=== PATIENT | male | born 1975 | race Caucasian/White ===

== ENCOUNTER 2022-06-27 09:04 | Inpatient (IN) | payer OTHER ==
[2022-06-27] MEDS ORDERED: LACTATED RINGERS SOLUTION 1,000 ML/1,000 ML INFUS.BAG IV STA (09:24)
[2022-06-27 10:31] LABS: BASO % 1.3 % (0-2.0); EOS % 6.9 % (0-4.5); HEMATOCRIT 38.4 % (35.4-49); HEMOGLOBIN 13.8 GM/dL (11.7-16.9); LYMPH % 19.7 % (8-40); MEAN CELL VOLUME 83.4 fl (80-96); MEAN PLT VOLUME 8.3 fl (7.5-11.1); MONO % 8.9 % (3.8-10.2); NEUT % 63.2 % (42.8-82.8); PLATELET COUNT 262 10^3/uL (134-434); RBC 4.61 M/mm3 (4.00-5.60); RDW 13.1 % (11.9-15.9)
[2022-06-27 10:35] LABS: INR 1.1 (0.83-1.09); PROTHROMBIN TIME (PATIENT) 12.8 SEC (9.7-13.0)
[2022-06-27 10:44] LABS: POTASSIUM 3.9 mmol/L (3.5-5.1)
[2022-06-27 10:47] LABS: ALBUMIN 3.7 g/dl (3.4-5.0); BLOOD UREA NITROGEN 11.7 mg/dL (7-18); CALCIUM 8.9 mg/dL (8.5-10.1)
[2022-06-27 10:51] LABS: BILIRUBIN,TOTAL 0.7 mg/dL (0.2-1); CREATININE 0.8 mg/dL (0.55-1.3); TOT PROT 7.3 g/dl (6.4-8.2)
[2022-06-27] MEDS ORDERED: CEFTRIAXONE 1 GM/50 ML BAG ONE (17:37)
[2022-06-27] MEDS: CEFTRIAXONE 1 GM in DEXTROSE 5%-WATER - 50 ML IVPB SCH (17:47)
[2022-06-27] MEDS ORDERED: PANTOPRAZOLE SODIUM 40 MG/100 ML BAG IVPB ONE (21:04)
[2022-06-27] MEDS: PANTOPRAZOLE SODIUM 40 MG VIAL IVPUSH SCH (21:09)
[2022-06-28] MEDS ORDERED: metroNIDAZOLE 500 MG PREMIXED 250 MG/50 ML MG IVPB SCH (02:00)
[2022-06-28 07:51] VITALS: BMI 27.6
[2022-06-28 08:21] LABS: BASO % 1.4 % (0-2.0); EOS % 9.7 % (0-4.5); HEMATOCRIT 37.4 % (35.4-49); HEMOGLOBIN 13.4 GM/dL (11.7-16.9); LYMPH % 25.4 % (8-40); MCH 29.6 pg (25.7-33.7); MCHC 35.8 g/dl (32.0-35.9); MEAN CELL VOLUME 82.6 fl (80-96); MEAN PLT VOLUME 7.9 fl (7.5-11.1); MONO % 9.3 % (3.8-10.2); NEUT % 54.2 % (42.8-82.8); PLATELET COUNT 268 10^3/uL (134-434); RBC 4.53 M/mm3 (4.00-5.60); RDW 12.8 % (11.9-15.9); WHITE BLOOD COUNT 7.7 K/mm3 (4.0-10.0)
[2022-06-28 08:22] LABS: INR 1.1 (0.83-1.09); PROTHROMBIN TIME (PATIENT) 12.8 SEC (9.7-13.0)
[2022-06-28 08:31] LABS: CALCIUM 8.9 mg/dL (8.5-10.1); POTASSIUM 4.1 mmol/L (3.5-5.1)
[2022-06-28 08:32] LABS: BLOOD UREA NITROGEN 11.6 mg/dL (7-18); MAGNESIUM 2.2 mg/dL (1.8-2.4)
[2022-06-28 08:36] LABS: CREATININE 0.8 mg/dL (0.55-1.3)
[2022-06-28] MEDS: PANTOPRAZOLE SODIUM 40 MG VIAL IVPUSH SCH (09:56)
[2022-06-28] MEDS: CEFTRIAXONE 1 GM in DEXTROSE 5%-WATER - 50 ML IVPB SCH (09:56)
[2022-06-28] MEDS ORDERED: PEG 3350/NA SULF BICARB CL/KCL 4000 ML SOLN.RECON PO ONE (10:00)
[2022-06-28] MEDS ORDERED: BISACODYL 5 MG TABLET.DR (FP) PO ONE (20:00)
[2022-06-29] MEDS: CEFTRIAXONE 1 GM in DEXTROSE 5%-WATER - 50 ML IVPB SCH (11:00)
[2022-06-29] MEDS: PANTOPRAZOLE SODIUM 40 MG VIAL IVPUSH SCH (11:00)
[2022-06-29] MEDS: MESALAMINE 800 MG TABLET.DR PO SCH ×2 (15:23→22:47)
[2022-06-29] MEDS ORDERED: MELATONIN 5 MG TABLETS PO ONE (22:08)
[2022-06-29] MEDS: MESALAMINE 4 GM/60 ML ENEMA RC SCH (22:47)
[2022-06-30] MEDS: MESALAMINE 800 MG TABLET.DR PO SCH ×3 (05:49→22:44)
[2022-06-30] MEDS: PANTOPRAZOLE SODIUM 40 MG VIAL IVPUSH SCH (09:21)
[2022-06-30] MEDS: CEFTRIAXONE 1 GM in DEXTROSE 5%-WATER - 50 ML IVPB SCH (12:19)
[2022-06-30] MEDS: MESALAMINE 4 GM/60 ML ENEMA RC SCH (22:44)
[2022-06-30] MEDS: MELATONIN 5 MG TABLETS PO PRN (22:44)
[2022-07-01 02:06] LABS: STOOL CHLORIDE 31 mmol/L (.); STOOL POTASSIUM 18 mmol/L (.); STOOL SODIUM 100 mmol/L (.)
[2022-07-01 02:06] LABS: STOOL CHLORIDE 55 mmol/L (.); STOOL POTASSIUM 31 mmol/L (.); STOOL SODIUM 109 mmol/L (.)
[2022-07-01] MEDS ORDERED: ACETAMINOPHEN 1000 MG/100 ML BAG IVPB ONE (04:58)
[2022-07-01] MEDS: MESALAMINE 800 MG TABLET.DR PO SCH ×3 (05:12→21:11)
[2022-07-01 09:15] LABS: POTASSIUM 3.9 mmol/L (3.5-5.1)
[2022-07-01 09:16] LABS: CALCIUM 8.6 mg/dL (8.5-10.1)
[2022-07-01 09:17] LABS: BLOOD UREA NITROGEN 11.6 mg/dL (7-18)
[2022-07-01 09:19] LABS: ALBUMIN 3.4 g/dl (3.4-5.0)
[2022-07-01 09:20] LABS: CREATININE 0.7 mg/dL (0.55-1.3)
[2022-07-01 09:21] LABS: BILIRUBIN,DIRECT 0.1 mg/dL (0.0-0.2)
[2022-07-01 09:23] LABS: BILIRUBIN,TOTAL 0.5 mg/dL (0.2-1); TOT PROT 6.8 g/dl (6.4-8.2)
[2022-07-01 09:44] LABS: BASO % 1.9 % (0-2.0); EOS % 12.2 % (0-4.5); HEMATOCRIT 39.5 % (35.4-49); HEMOGLOBIN 13.7 GM/dL (11.7-16.9); LYMPH % 28.4 % (8-40); MCH 29.4 pg (25.7-33.7); MCHC 34.7 g/dl (32.0-35.9); MEAN CELL VOLUME 84.8 fl (80-96); MEAN PLT VOLUME 8.4 fl (7.5-11.1); MONO % 9.9 % (3.8-10.2); NEUT % 47.6 % (42.8-82.8); PLATELET COUNT 284 10^3/uL (134-434); RBC 4.65 M/mm3 (4.00-5.60); RDW 13.1 % (11.9-15.9)
[2022-07-01] MEDS: PANTOPRAZOLE SODIUM 40 MG VIAL IVPUSH SCH (11:03)
[2022-07-01] MEDS: MESALAMINE 4 GM/60 ML ENEMA RC SCH (22:17)
[2022-07-01] MEDS: MELATONIN 5 MG TABLETS PO PRN (23:39)
[2022-07-02] MEDS: MESALAMINE 800 MG TABLET.DR PO SCH ×3 (05:17→21:07)
[2022-07-02 08:15] LABS: BASO % 1.3 % (0-2.0); HEMATOCRIT 37.7 % (35.4-49); HEMOGLOBIN 13.2 GM/dL (11.7-16.9); LYMPH % 16.6 % (8-40); MCH 29.5 pg (25.7-33.7); MEAN CELL VOLUME 84.3 fl (80-96); MEAN PLT VOLUME 8.3 fl (7.5-11.1); MONO % 7.8 % (3.8-10.2); NEUT % 64.3 % (42.8-82.8); PLATELET COUNT 257 10^3/uL (134-434); RBC 4.47 M/mm3 (4.00-5.60); RDW 13.2 % (11.9-15.9); WHITE BLOOD COUNT 11.2 K/mm3 (4.0-10.0)
[2022-07-02 08:29] LABS: POTASSIUM 4.2 mmol/L (3.5-5.1)
[2022-07-02 08:31] LABS: CALCIUM 8.8 mg/dL (8.5-10.1)
[2022-07-02 08:32] LABS: ALBUMIN 3.2 g/dl (3.4-5.0); BLOOD UREA NITROGEN 11.2 mg/dL (7-18)
[2022-07-02 08:35] LABS: BILIRUBIN,DIRECT 0.1 mg/dL (0.0-0.2); CREATININE 0.8 mg/dL (0.55-1.3)
[2022-07-02 08:36] LABS: BILIRUBIN,TOTAL 0.5 mg/dL (0.2-1)
[2022-07-02 08:37] LABS: TOT PROT 6.4 g/dl (6.4-8.2)
[2022-07-02 09:15] LABS: ERYTHROCYTE SEDIMENTATION RATE 23 mm/hr (0-10)
[2022-07-02] MEDS: PANTOPRAZOLE SODIUM 40 MG VIAL IVPUSH SCH (10:14)
[2022-07-02] MEDS: predniSONE 20 MG TABLET (UD) PO SCH (11:52)
[2022-07-02] MEDS: MESALAMINE 4 GM/60 ML ENEMA RC SCH (22:42)
[2022-07-02] MEDS: MELATONIN 5 MG TABLETS PO PRN (23:44)
[2022-07-03] MEDS: MESALAMINE 800 MG TABLET.DR PO SCH ×3 (06:13→21:16)
[2022-07-03] MEDS: CALCIUM 250MG/VIT-D 125 UNITS 1 COMBO TABLET PO SCH (09:39)
[2022-07-03] MEDS: predniSONE 20 MG TABLET (UD) PO SCH (09:40)
[2022-07-03 10:06] LABS: EOS % 5.3 % (0-4.5); HEMATOCRIT 41.4 % (35.4-49); HEMOGLOBIN 14.2 GM/dL (11.7-16.9); MCH 29.1 pg (25.7-33.7); MCHC 34.3 g/dl (32.0-35.9); MEAN CELL VOLUME 84.9 fl (80-96); MEAN PLT VOLUME 8.3 fl (7.5-11.1); MONO % 11.6 % (3.8-10.2); NEUT % 56.1 % (42.8-82.8); PLATELET COUNT 329 10^3/uL (134-434); RBC 4.87 M/mm3 (4.00-5.60); RDW 13.2 % (11.9-15.9); WHITE BLOOD COUNT 10.3 K/mm3 (4.0-10.0)
[2022-07-03 10:22] LABS: POTASSIUM 4.1 mmol/L (3.5-5.1)
[2022-07-03 10:24] LABS: CALCIUM 9.1 mg/dL (8.5-10.1)
[2022-07-03 10:25] LABS: ALBUMIN 3.5 g/dl (3.4-5.0)
[2022-07-03 10:28] LABS: CREATININE 0.9 mg/dL (0.55-1.3)
[2022-07-03 10:29] LABS: TOT PROT 7.1 g/dl (6.4-8.2)
[2022-07-03 10:30] LABS: BILIRUBIN,TOTAL 0.5 mg/dL (0.2-1)
[2022-07-03 11:20] LABS: BILIRUBIN,DIRECT 0.1 mg/dL (0.0-0.2)
[2022-07-03 15:09] LABS: ATYPICAL pANCA <1:20 titer (Neg:<1:20)
[2022-07-03] MEDS: BANATROL PLUS POWDER PACKET PO SCH (21:16)
[2022-07-03] MEDS: MESALAMINE 4 GM/60 ML ENEMA RC SCH (22:13)
[2022-07-03] MEDS: MELATONIN 5 MG TABLETS PO PRN (23:43)
[2022-07-04] MEDS: MESALAMINE 800 MG TABLET.DR PO SCH ×3 (06:22→23:05)
[2022-07-04] MEDS: BANATROL PLUS POWDER PACKET PO SCH ×3 (06:22→23:05)
[2022-07-04 09:23] LABS: BASO % 1.3 % (0-2.0); EOS % 4.8 % (0-4.5); HEMATOCRIT 40.2 % (35.4-49); HEMOGLOBIN 14.2 GM/dL (11.7-16.9); LYMPH % 27.5 % (8-40); MCH 29.9 pg (25.7-33.7); MCHC 35.5 g/dl (32.0-35.9); MEAN CELL VOLUME 84.2 fl (80-96); MEAN PLT VOLUME 8.6 fl (7.5-11.1); MONO % 10.6 % (3.8-10.2); NEUT % 55.8 % (42.8-82.8); PLATELET COUNT 312 10^3/uL (134-434); RBC 4.77 M/mm3 (4.00-5.60); RDW 13.3 % (11.9-15.9); WHITE BLOOD COUNT 9.9 K/mm3 (4.0-10.0)
[2022-07-04 09:44] LABS: POTASSIUM 4.1 mmol/L (3.5-5.1)
[2022-07-04 09:54] LABS: IRON SERUM 85 ug/dL (50-175)
[2022-07-04 09:55] LABS: TOTAL IRON BINDING CAPACITY 292 ug/dL (250-450)
[2022-07-04 09:57] LABS: ALBUMIN 3.4 g/dl (3.4-5.0); CALCIUM 9.1 mg/dL (8.5-10.1)
[2022-07-04 10:00] LABS: BLOOD UREA NITROGEN 14.8 mg/dL (7-18)
[2022-07-04 10:02] LABS: BILIRUBIN,TOTAL 0.6 mg/dL (0.2-1); CREATININE 0.8 mg/dL (0.55-1.3)
[2022-07-04] MEDS: predniSONE 20 MG TABLET (UD) PO SCH (10:32)
[2022-07-04] MEDS: CALCIUM 250MG/VIT-D 125 UNITS 1 COMBO TABLET PO SCH (10:33)
[2022-07-04] MEDS: ENOXAPARIN NA (PORCINE) 40 MG/0.4 ML DISP.SYRIN SQ SCH (10:33)
[2022-07-04 12:13] LABS: BILIRUBIN,DIRECT 0.2 mg/dL (0.0-0.2)
[2022-07-04 16:11] LABS: HIV INTERPRETATION NEGATIVE (NEGATIVE)
[2022-07-04] MEDS: MESALAMINE 4 GM/60 ML ENEMA RC SCH (23:39)
[2022-07-05] MEDS: MESALAMINE 800 MG TABLET.DR PO SCH ×3 (05:05→22:01)
[2022-07-05] MEDS: BANATROL PLUS POWDER PACKET PO SCH (05:05)
[2022-07-05 06:14] LABS: CMV IgM < 30.0 AU/mL (0.0-29.9)
[2022-07-05] MEDS: CALCIUM 250MG/VIT-D 125 UNITS 1 COMBO TABLET PO SCH (10:37)
[2022-07-05] MEDS: ENOXAPARIN NA (PORCINE) 40 MG/0.4 ML DISP.SYRIN SQ SCH (10:38)
[2022-07-05] MEDS ORDERED: methylPREDNISolone NA SUCC 40 MG/1 ML VIAL IVPB SCH (11:00)
[2022-07-05] MEDS: predniSONE 20 MG TABLET (UD) PO SCH (12:27)
[2022-07-05] MEDS ORDERED: methylPREDNISolone NA SUCC 40 MG/1 ML VIAL IVPUSH SCH (12:41)
[2022-07-05 12:59] LABS: POTASSIUM 4.1 mmol/L (3.5-5.1)
[2022-07-05 13:01] LABS: CALCIUM 9.2 mg/dL (8.5-10.1)
[2022-07-05 13:02] LABS: ALBUMIN 3.5 g/dl (3.4-5.0)
[2022-07-05 13:05] LABS: BILIRUBIN,DIRECT 0.1 mg/dL (0.0-0.2); CREATININE 0.7 mg/dL (0.55-1.3)
[2022-07-05 13:06] LABS: BILIRUBIN,TOTAL 0.4 mg/dL (0.2-1); TOT PROT 7.1 g/dl (6.4-8.2)
[2022-07-05] MEDS: methylPREDNISolone NA SUCC 40 MG/1 ML VIAL IVPUSH SCH ×2 (13:09→18:06)
[2022-07-05] MEDS: MESALAMINE 4 GM/60 ML ENEMA RC SCH (22:01)
[2022-07-05] MEDS ORDERED: MAG HYDROX/AL HYDROX/SIMETH 30 ML UNIT-DOSE CUP PO PRN (22:07)
[2022-07-05] MEDS: MELATONIN 5 MG TABLETS PO PRN (23:48)
[2022-07-06] MEDS: methylPREDNISolone NA SUCC 40 MG/1 ML VIAL IVPUSH SCH ×3 (02:01→17:36)
[2022-07-06] MEDS: MESALAMINE 800 MG TABLET.DR PO SCH ×3 (06:31→23:05)
[2022-07-06] MEDS: CALCIUM 250MG/VIT-D 125 UNITS 1 COMBO TABLET PO SCH (09:29)
[2022-07-06] MEDS: ENOXAPARIN NA (PORCINE) 40 MG/0.4 ML DISP.SYRIN SQ SCH (09:30)
[2022-07-06] MEDS: PANTOPRAZOLE 40 MG TABLET PO SCH (12:10)
[2022-07-06 13:37] LABS: ALBUMIN 3.4 g/dl (3.4-5.0)
[2022-07-06 13:40] LABS: BILIRUBIN,DIRECT 0.2 mg/dL (0.0-0.2)
[2022-07-06 13:42] LABS: TOT PROT 6.9 g/dl (6.4-8.2)
[2022-07-06 13:43] LABS: BILIRUBIN,TOTAL 0.6 mg/dL (0.2-1)
[2022-07-06 13:48] LABS: POTASSIUM 4.3 mmol/L (3.5-5.1)
[2022-07-06 13:53] LABS: CALCIUM 9.7 mg/dL (8.5-10.1)
[2022-07-06 13:54] LABS: BLOOD UREA NITROGEN 15.8 mg/dL (7-18)
[2022-07-06 13:57] LABS: CREATININE 0.6 mg/dL (0.55-1.3)
[2022-07-06] MEDS: MELATONIN 5 MG TABLETS PO PRN (23:09)
[2022-07-07] MEDS: methylPREDNISolone NA SUCC 40 MG/1 ML VIAL IVPUSH SCH ×3 (02:39→18:17)
[2022-07-07] MEDS: MESALAMINE 800 MG TABLET.DR PO SCH ×3 (06:13→22:07)
[2022-07-07] MEDS: PANTOPRAZOLE 40 MG TABLET PO SCH (09:54)
[2022-07-07] MEDS: CALCIUM 250MG/VIT-D 125 UNITS 1 COMBO TABLET PO SCH (09:54)
[2022-07-07] MEDS: ENOXAPARIN NA (PORCINE) 40 MG/0.4 ML DISP.SYRIN SQ SCH (09:54)
[2022-07-07 10:39] LABS: BASO % 0.1 % (0-2.0); HEMOGLOBIN 13.4 GM/dL (11.7-16.9); LYMPH % 8.5 % (8-40); MCH 29.2 pg (25.7-33.7); MCHC 34.5 g/dl (32.0-35.9); MEAN CELL VOLUME 84.7 fl (80-96); MEAN PLT VOLUME 8.1 fl (7.5-11.1); MONO % 5.1 % (3.8-10.2); NEUT % 86.3 % (42.8-82.8); PLATELET COUNT 343 10^3/uL (134-434); RBC 4.61 M/mm3 (4.00-5.60); RDW 13.3 % (11.9-15.9); WHITE BLOOD COUNT 9.2 K/mm3 (4.0-10.0)
[2022-07-07 11:00] LABS: POTASSIUM 3.9 mmol/L (3.5-5.1)
[2022-07-07 11:02] LABS: ALBUMIN 3.3 g/dl (3.4-5.0); BLOOD UREA NITROGEN 16.7 mg/dL (7-18); CALCIUM 8.6 mg/dL (8.5-10.1)
[2022-07-07 11:05] LABS: BILIRUBIN,DIRECT 0.1 mg/dL (0.0-0.2); CREATININE 0.7 mg/dL (0.55-1.3)
[2022-07-07 11:07] LABS: BILIRUBIN,TOTAL 0.5 mg/dL (0.2-1); TOT PROT 6.5 g/dl (6.4-8.2)
[2022-07-07] MEDS: INSULIN SLIDING SCALE (NOVOLOG) 1 VIAL SQ SCH ×2 (16:30→22:38)
[2022-07-07] MEDS: MELATONIN 5 MG TABLETS PO PRN (22:07)
[2022-07-08] MEDS: methylPREDNISolone NA SUCC 40 MG/1 ML VIAL IVPUSH SCH ×3 (01:30→17:21)
[2022-07-08] MEDS: MESALAMINE 800 MG TABLET.DR PO SCH ×3 (05:51→21:55)
[2022-07-08] MEDS: INSULIN SLIDING SCALE (NOVOLOG) 1 VIAL SQ SCH ×3 (06:03→17:21)
[2022-07-08] MEDS: PANTOPRAZOLE 40 MG TABLET PO SCH (09:37)
[2022-07-08] MEDS: ENOXAPARIN NA (PORCINE) 40 MG/0.4 ML DISP.SYRIN SQ SCH ×2 (09:37→09:52)
[2022-07-08] MEDS: CALCIUM 250MG/VIT-D 125 UNITS 1 COMBO TABLET PO SCH (09:38)
[2022-07-08 10:05] LABS: HEMATOCRIT 39.9 % (35.4-49); HEMOGLOBIN 13.7 GM/dL (11.7-16.9); MCH 29.4 pg (25.7-33.7); MCHC 34.4 g/dl (32.0-35.9); MEAN CELL VOLUME 85.3 fl (80-96); MEAN PLT VOLUME 8.6 fl (7.5-11.1); PLATELET COUNT 320 10^3/uL (134-434); RBC 4.67 M/mm3 (4.00-5.60); RDW 13.1 % (11.9-15.9); WHITE BLOOD COUNT 13.3 K/mm3 (4.0-10.0)
[2022-07-08 10:27] LABS: POTASSIUM 4.2 mmol/L (3.5-5.1)
[2022-07-08 10:32] LABS: ALBUMIN 3.2 g/dl (3.4-5.0)
[2022-07-08 10:33] LABS: BLOOD UREA NITROGEN 15.8 mg/dL (7-18)
[2022-07-08 10:35] LABS: CREATININE 0.9 mg/dL (0.55-1.3)
[2022-07-08 10:37] LABS: BILIRUBIN,TOTAL 0.6 mg/dL (0.2-1); TOT PROT 6.5 g/dl (6.4-8.2)
[2022-07-08 12:43] LABS: BILIRUBIN,DIRECT 0.1 mg/dL (0.0-0.2)
[2022-07-08] MEDS: MELATONIN 5 MG TABLETS PO PRN (21:55)
[2022-07-09] MEDS: INSULIN SLIDING SCALE (NOVOLOG) 1 VIAL SQ SCH ×4 (00:02→17:25)
[2022-07-09] MEDS: methylPREDNISolone NA SUCC 40 MG/1 ML VIAL IVPUSH SCH ×2 (01:27→09:33)
[2022-07-09] MEDS: MESALAMINE 800 MG TABLET.DR PO SCH ×2 (06:38→13:13)
[2022-07-09] MEDS: PANTOPRAZOLE 40 MG TABLET PO SCH (09:33)
[2022-07-09] MEDS: CALCIUM 250MG/VIT-D 125 UNITS 1 COMBO TABLET PO SCH (09:34)
[2022-07-09] MEDS: ENOXAPARIN NA (PORCINE) 40 MG/0.4 ML DISP.SYRIN SQ SCH (09:35)
[2022-07-09 10:15] LABS: BASO % 0.3 % (0-2.0); HEMOGLOBIN 14.3 GM/dL (11.7-16.9); INR 1.03 (0.83-1.09); LYMPH % 7.1 % (8-40); MCH 29.2 pg (25.7-33.7); MCHC 34.1 g/dl (32.0-35.9); MEAN CELL VOLUME 85.7 fl (80-96); MEAN PLT VOLUME 8.4 fl (7.5-11.1); NEUT % 88.6 % (42.8-82.8); PLATELET COUNT 331 10^3/uL (134-434); RDW 13.2 % (11.9-15.9); WHITE BLOOD COUNT 14.9 K/mm3 (4.0-10.0)
[2022-07-09 10:17] LABS: ACTIVATED PTT 22.6 SECONDS (25.2-36.5)
[2022-07-09 10:31] LABS: POTASSIUM 4.1 mmol/L (3.5-5.1)
[2022-07-09 10:37] LABS: CALCIUM 8.9 mg/dL (8.5-10.1)
[2022-07-09 10:38] LABS: ALBUMIN 3.3 g/dl (3.4-5.0); BLOOD UREA NITROGEN 15.4 mg/dL (7-18); MAGNESIUM 2.1 mg/dL (1.8-2.4)
[2022-07-09 10:40] LABS: CREATININE 0.7 mg/dL (0.55-1.3)
[2022-07-09 10:42] LABS: BILIRUBIN,TOTAL 0.7 mg/dL (0.2-1); TOT PROT 6.6 g/dl (6.4-8.2)
[2022-07-09 12:58] LABS: POTASSIUM 4.4 mmol/L (3.5-5.1)
[2022-07-09 12:59] LABS: CALCIUM 9.1 mg/dL (8.5-10.1)
[2022-07-09 13:00] LABS: BLOOD UREA NITROGEN 17.2 mg/dL (7-18)
[2022-07-09 13:01] LABS: ALBUMIN 3.6 g/dl (3.4-5.0)
[2022-07-09 13:03] LABS: CREATININE 0.7 mg/dL (0.55-1.3)
[2022-07-09 13:04] LABS: BILIRUBIN,DIRECT 0.2 mg/dL (0.0-0.2)
[2022-07-09 13:06] LABS: BILIRUBIN,TOTAL 0.6 mg/dL (0.2-1); TOT PROT 7.1 g/dl (6.4-8.2)
[2022-07-09 15:48] VITALS: RESP 18
[2022-07-09 18:18] VITALS: BP 125/74; PULSE 71; TEMP 98.3
[2022-07-10] MEDS ORDERED: predniSONE 20 MG TABLET (UD) PO SCH (10:00)
== END 2022-07-09 18:14 | disposition home or self-care (01) | DRG 387 ==
LOC: JER 09:04 → JERBED 16:33 → J5S 22:11
PROVIDERS: ADMIT Internal Medicine; ATTEND Student in an Organized Health Care Education/Training Program
PROC: 0DBL8ZX Excision of Transverse Colon, Via Natural or Artificial Opening Endoscopic, Diagnostic (ICD-10-PCS; 2022-06-29)
PROC: 0DBN8ZX Excision of Sigmoid Colon, Via Natural or Artificial Opening Endoscopic, Diagnostic (ICD-10-PCS; 2022-06-29)
PROC: 0DBP8ZX Excision of Rectum, Via Natural or Artificial Opening Endoscopic, Diagnostic (ICD-10-PCS; 2022-06-29)
PROC: 0DBB8ZX Excision of Ileum, Via Natural or Artificial Opening Endoscopic, Diagnostic (ICD-10-PCS; 2022-06-29)
PROC: 0DBH8ZX Excision of Cecum, Via Natural or Artificial Opening Endoscopic, Diagnostic (ICD-10-PCS; 2022-06-29)
PROC: 0DBK8ZX Excision of Ascending Colon, Via Natural or Artificial Opening Endoscopic, Diagnostic (ICD-10-PCS; principal; 2022-06-29 13:30)
DX: K51.90 Ulcerative colitis, unspecified, without complications (principal); K80.20 Calculus of gallbladder without cholecystitis without obstruction; N20.0 Calculus of kidney; K21.9 Gastro-esophageal reflux disease without esophagitis; K64.8 Other hemorrhoids; R73.9 Hyperglycemia, unspecified; T38.0X5A Adverse effect of glucocorticoids and synthetic analogues, initial encounter
CPT/HCPCS: 36415; 74177-TC; 80048; 80053; 80076; 82438; 82542; 82728; 82962; 83540; 83550; 83735; 84100; 84302; 84999; 85025; 85027; 85610; 85651; 85730; 86140; 86256; 86480; 86644; 86645; 86671; 86704; 86803; 86850; 86900; 86901; 87040; 87045; 87046; 87205; 87209; 87324; 87340; 87389; 87449; 87497; 87517; 88305-TC; 99285-25; C9803-CS; Q9967; U0003; U0005